=== PATIENT | male | born 1950 | race Caucasian/White ===

== ENCOUNTER → 2020-08-03 | Outpatient (CLI) | payer OTHER ==
--- NOTE | 2020-08-03 15:27 | KCIC ---
RIGHT WRIST, 3 VIEWS Indication: Reason: RIGHT WRIST PAIN AND SWELLING : SHARP PAIN ON RADIAL SIDE, SHOOTS UP RT ARM AND D OWN FINGERS / History: Findings: There is no acute fracture or dislocation. No bony erosion is identified. Small ossific bodies at the tip of the ulnar styloid may be due to old injury or accessory ossicles. There is chondrocalcinosis of TFCC. There is triscaphe degenerative ch froilan. The mineralization is normal. There is no soft tissue swelling or radiopaque foreign body. IMPRESSION: 1. No acute fracture. 2. Triscaphe arthropathy. 3. Chondrocalcinosis. Electronically signed by: Alireza Alford MD (08/03/2020 3:25 PM) [id number]
== END ==
LOC: KCIC 11:02
PROVIDERS: ATTEND Family Medicine
DX: M19.031 Primary osteoarthritis, right wrist (principal); M25.431 Effusion, right wrist; M11.231 Other chondrocalcinosis, right wrist
CPT/HCPCS: 73110